=== PATIENT | male | born 1990 ===

== ENCOUNTER 2021-07-17 07:37 | Emergency (ER) | payer BC ==
[2021-07-17] MEDS ORDERED: Sodium Chloride 0.9% 1,000 ML IV STA (08:13)
[2021-07-17] MEDS ORDERED: Ondansetron 4 MG/2 ML SDV IVPUSH ONE (08:13)
[2021-07-17] MEDS ORDERED: Sodium Chloride 0.9% 10 ML Syringe FLUSH PRN (08:13)
--- NOTE | 2021-07-17 08:41 | EDM.PDOC ---
ED HPI GENERAL MEDICAL PROBLEM - General Chief Complaint: Gastrointestinal Problem Stated Complaint: VOMITING/DIARRHEA Time Seen by Provider: 07/17/21 08:00 Source of Information: Reports: Patient, Family History Limitations: Reports: No Limitations - History of Present Illness INITIAL COMMENTS - FREE TEXT/NARRATIVE: The patient presents with nausea, vomiting diarrhea and low back pain. This started early this morning. He has no fever but he has chills. He has no cough, congestion or runny nose. His mom has similar symptoms. He does not think he ate any bad food. He has no medical problems. He still has his appendix and gallbladder. He has no pain with urination. He has generalized weakness. Onset: Gradual Duration: Hour(s): Location: Reports: Back Quality: Reports: Sharp Severity: Moderate Improves with: Reports: None Worsens with: Reports: None Associated Symptoms: Reports: Fever/Chills, Nausea/Vomiting. Denies: Chest Pain, Cough, Headaches, Shortness of Breath Back Pain Score (Numeric/FACES): 7 - Related Data Allergies Allergy/AdvReac Type Severity Reaction Status Date / Time No Known Allergies Allergy Verified 07/17/21 07:52 Home Meds: Home Meds Ondansetron [Zofran ODT] 4 mg PO Q6H PRN #20 tab.dis 07/17/21 [Rx] Past Medical History - Past Health History Medical/Surgical History: Denies Medical/Surgical History - Past Surgical History HEENT Surgical History: Reports: Tonsillectomy Social & Family History - Tobacco Use Tobacco Use Status *Q: Never Tobacco User Second Hand Smoke Exposure: No ED ROS GENERAL - Review of Systems Review Of Systems: See Below Constitutional: Reports: Chills. Denies: Fever HEENT: Reports: No Symptoms Respiratory: Reports: No Symptoms Cardiovascular: Reports: No Symptoms Endocrine: Reports: No Symptoms GI/Abdominal: Reports: Diarrhea, Nausea, Vomiting. Denies: Abdominal Pain Musculoskeletal: Reports: Back Pain Skin: Reports: No Symptoms Neurological: Reports: No Symptoms ED EXAM, GI/ABD - Physical Exam Exam: See Below Exam Limited By: No Limitations General Appearance: Alert, No Apparent Distress Ears: Normal External Exam Nose: Normal Inspection Head: Atraumatic, Normocephalic Neck: Normal Inspection Respiratory/Chest: No Respiratory Distress, Lungs Clear, Normal Breath Sounds Cardiovascular: Regular Rate, Rhythm, No Edema, No Murmur GI/Abdominal Exam: Soft, Non-Tender, No Organomegaly, No Mass Back Exam: Normal Inspection Extremities: Normal Inspection Course - Vital Signs Last Recorded V/S: Last Vital Signs Temp 96.5 F L 07/17/21 07:47 Pulse 119 H 07/17/21 07:47 Resp 20 07/17/21 07:47 BP 148/84 H 07/17/21 07:47 Pulse Ox 94 L 07/17/21 07:47 - Orders/Labs/Meds Orders: Active Orders 24 hr Category Date Time Status Peripheral IV Care [RC] . DIRECTED Care 07/17/21 08:13 Active Abdomen Pelvis wo Cont [CT] Stat Exams 07/17/21 10:20 Stop Req UA W/MICROSCOPIC [URIN] Stat Lab 07/17/21 08:15 Stop Req Sodium Chloride 0.9% [Saline Flush] Med 07/17/21 08:13 Active 10 ml FLUSH ASDIRECTED PRN ED Antiemetic Medication Reflex [OM.PC] Stat Oth 07/17/21 08:13 Ordered Peripheral IV Insertion Adult [OM.PC] Stat Oth 07/17/21 08:13 Ordered Medication Orders Sodium Chloride (Sodium Chloride 0.9% 10 Ml Syringe) 10 ml FLUSH ASDIRECTED PRN PRN Reason: Keep Vein Open Last Admin: 07/17/21 08:28 Dose: 10 ml Documented by: AIDA Labs: Laboratory Tests 07/17/21 07/17/21 07/17/21 Range/Units 08:10 08:10 08:15 WBC 12.65 H (4.23-9.07) K/mm3 RBC 5.98 (4.63-6.08) M/mm3 Hgb 18.1 H (13.7-17.5) gm/dl Hct 53.6 H (40.1-51.0) % MCV 89.6 (79.0-92.2) fl MCH 30.3 (25.7-32.2) pg MCHC 33.8 (32.2-35.5) g/dl RDW Std Deviation 44.0 H (35.1-43.9) fL Plt Count 286 (163-337) K/mm3 MPV 9.6 (9.4-12.3) fl Neut % (Auto) 89.0 H (34.0-67.9) % Lymph % (Auto) 1.6 L (21.8-53.1) % [place] % (Auto) 8.7 (5.3-12.2) % Eos % (Auto) 0.3 L (0.8-7.0) Baso % (Auto) 0.2 (0.1-1.2) % Neut # (Auto) 11.26 H (1.78-5.38) K/mm3 Lymph # (Auto) 0.20 L (1.32-3.57) K/mm3 [place] # (Auto) 1.10 H (0.30-0.82) K/mm3 Eos # (Auto) 0.04 (0.04-0.54) K/mm3 Baso # (Auto) 0.02 (0.01-0.08) K/mm3 Sodium 138 (136-145) mEq/L Potassium 4.6 (3.5-5.1) mEq/L Chloride 101 (98-107) mEq/L Carbon Dioxide 24 (21-32) mEq/L Anion Gap 17.6 H (5-15) BUN 35 H (7-18) mg/dL Creatinine 1.6 H (0.7-1.3) mg/dL Est Cr Clr Drug Dosing 66.28 mL/min Estimated GFR (MDRD) 50 (>60) mL/min BUN/Creatinine Ratio 21.9 H (14-18) Glucose 147 H (70-99) mg/dL Calcium 9.3 (8.5-10.1) mg/dL Total Bilirubin 0.9 (0.2-1.0) mg/dL AST 19 (15-37) U/L ALT 36 (16-63) U/L Alkaline Phosphatase 68 (46-116) U/L Total Protein 8.8 H (6.4-8.2) g/dl Albumin 5.1 H (3.4-5.0) g/dl Globulin 3.7 gm/dL Albumin/Globulin Ratio 1.4 (1-2) Lipase 55 L (73-393) U/L Influenza Type A RNA Negative (NEGATIVE) Influenza Type B RNA Negative (NEGATIVE) SARS-CoV-2 RNA (JONATHAN) Negative (NEGATIVE) Meds: Medications Generic Name Dose Route Start Last Admin Trade Name Freq PRN Reason Stop Dose Admin Sodium Chloride 10 ml 07/17/21 08:13 07/17/21 08:28 Sodium Chloride 0.9% 10 Ml Syringe FLUSH 10 ml ASDIRECTED PRN Administration Keep Vein Open Discontinued Medications Generic Name Dose Route Start Last Admin Trade Name Davina PRN Reason Stop Dose Admin Sodium Chloride 1,000 mls @ 1,000 mls/hr 07/17/21 08:13 07/17/21 08:28 Normal Saline IV 07/17/21 09:12 1,000 mls/hr .BOLUS STA Administration Ketorolac Tromethamine 30 mg 07/17/21 10:21 07/17/21 10:36 Ketorolac 30 Mg/Ml Sdv IVPUSH 07/17/21 10:22 30 mg ONETIME ONE Administration Ondansetron HCl 4 mg 07/17/21 08:13 07/17/21 08:28 Ondansetron 4 Mg/2 Ml Sdv IVPUSH 07/17/21 08:14 4 mg ONETIME ONE Administration - Re-Assessments/Exams Free Text/Narrative Re-Assessment/Exam: 07/17/21 08:41 I ordered an IV NS 1L bolus, zofran 4mg IV, labs, UA and COVID 19. 07/17/21 10:48 His WBC was elevated at 12.65. His Hgb was elevated at 18.1. His anion gap was elevated at 17.6. His creatinine is elevated at 1.6. His glucose is elevated at 147. His COVID and influenza are negative. He feels better. He still has some low back pain. I ordered some toradol. I was going to order a CT to rule out kidney stone or something else but he says another family member had similar symptoms. That makes 3 now. I feel this is food poisoning. They would like to go home. I have ordered zofran as out patient. Departure - Departure Time of Disposition: 10:55 Disposition: Home, Self-Care 01 Condition: Good Clinical Impression: Gastroenteritis, Food poisoning - Discharge Information *PRESCRIPTION DRUG MONITORING PROGRAM REVIEWED*: Not Applicable *COPY OF PRESCRIPTION DRUG MONITORING REPORT IN PATIENT GISELL: Not Applicable Prescriptions: Ondansetron [Zofran ODT] 4 mg PO Q6H PRN #20 tab.dis PRN Reason: Nausea\vomiting Referrals: PCP,None [Primary Care Provider] - Forms: ED Department Discharge Additional Instructions: Drink plenty of fluids. Take the zofran every 6 hours as needed for nausea or vomiting. Try to advance your diet as tolerated later today. Try some broth and then crackers and so forth. Please return if you get worse such as more pain, vomiting or bloody diarrhea. Sepsis Event Note (ED) - Evaluation Sepsis Screening Result: No Definite Risk - Focused Exam Vital Signs: Vital Signs Temp Pulse Resp BP Pulse Ox 07/17/21 07:47 96.5 F L 119 H 20 148/84 H 94 L - My Orders Last 24 Hours: My Active Orders 07/17/21 08:13 Peripheral IV Care [RC] . DIRECTED Sodium Chloride 0.9% [Saline Flush] 10 ml FLUSH ASDIRECTED PRN ED Antiemetic Medication Reflex [OM.PC] Stat Peripheral IV Insertion Adult [OM.PC] Stat 07/17/21 08:15 UA W/MICROSCOPIC [URIN] Stat 07/17/21 10:20 Abdomen Pelvis wo Cont [CT] Stat - Assessment/Plan Last 24 Hours: My Active Orders 07/17/21 08:13 Peripheral IV Care [RC] . DIRECTED Sodium Chloride 0.9% [Saline Flush] 10 ml FLUSH ASDIRECTED PRN ED Antiemetic Medication Reflex [OM.PC] Stat Peripheral IV Insertion Adult [OM.PC] Stat 07/17/21 08:15 UA W/MICROSCOPIC [URIN] Stat 07/17/21 10:20 Abdomen Pelvis wo Cont [CT] Stat
[2021-07-17 09:02] LABS: CORONAVIRUS COVID-19 NAA NEGATIVE (NEGATIVE)
[2021-07-17] MEDS ORDERED: Ketorolac 30 MG/ML SDV IVPUSH ONE (10:21)
== END 2021-07-17 11:03 | disposition home or self-care (01) ==
LOC: JD.ED 07:37
DX: A05.9 Bacterial foodborne intoxication, unspecified (principal); K52.9 Noninfective gastroenteritis and colitis, unspecified; Z20.822 Contact with and (suspected) exposure to COVID-19
CPT/HCPCS: 0240U; 36415; 80053; 83690; 85025; 96374; 96375; 99284-25; J1885; J2405; J7030